=== PATIENT | female | born 1990 | race Caucasian/White ===

== ENCOUNTER → 2022-11-23 | Outpatient (CLI) | payer OTHER | LOC: M RAD 11:37 | PROVIDERS: ATTEND Advanced Practice Midwife | DX: O36.5990 Maternal care for other known or suspected poor fetal growth, unspecified trimester, not applicable or unspecified (principal) ==

== ENCOUNTER 2022-12-03 07:30 | Inpatient (IN) | payer OTHER ==
[~2022-12-03] VITALS: Ht 167.6 cm; Wt 96.7 kg
[2022-12-03] VITALS (19 sets, daily range): BP systolic 99–129; BP diastolic 52–72; O2SAT 97–99
[2022-12-03] MEDS ORDERED: LACTATED RINGER'S 1000 ML IV STA (07:53)
[2022-12-03] MEDS ORDERED: LR 1,000 ML IV SCH (07:55)
[2022-12-03] MEDS ORDERED: OXYTOCIN DRIP 30 UNITS in IV 1 EA IV PRN ×4 (07:55)
[2022-12-03] MEDS ORDERED: CARBOPROST TROMETHAMINE 250 MCG/ML AMP IM PRN (07:55)
[2022-12-03] MEDS ORDERED: METHYLERGONOVINE MALEATE 0.2MG/ML 1ML VIAL IM PRN (07:55)
[2022-12-03] MEDS ORDERED: TRANEXAMIC ACID INJection 1,000 MG in NS 100 ML IV PRN (07:55)
[2022-12-03] MEDS ORDERED: LIDOCAINE 1% MDV 20ML VIAL INFIL PRN (07:55)
[2022-12-03] MEDS ORDERED: PRENTAB9 PO (08:23)
[2022-12-03] MEDS ORDERED: ACET500P3 PO (08:23)
[2022-12-03] MEDS ORDERED: TUMS500C PO (08:23)
[2022-12-03] MEDS ORDERED: HOME MED LIST COMPLETE! XX SCH (08:25)
[2022-12-03 08:36] LABS: HEMATOCRIT 37.3 % (36.0-47.0); HEMOGLOBIN 12.2 g/dl (12.0-15.5); MEAN CORPUSCULAR HGB CONC 32.7 g/dl (32.0-36.5); MEAN CORPUSCULAR VOLUME 91.6 fl (80.0-96.0); PLATELET COUNT, AUTOMATED 239 10^3/uL (150-450); RED BLOOD COUNT 4.07 10^6/uL (4.00-5.40); WHITE BLOOD COUNT 13.4 10^3/uL (4.0-10.0)
[2022-12-03] MEDS: miSOPROStol 50MCG 1/2 TABLET SL SCH ×2 (10:07→17:34)
[2022-12-03] MEDS ORDERED: OXYTOCIN DRIP 30 UNITS in IV 1 EA IV SCH (22:15)
[2022-12-04] VITALS (11 sets, daily range): BP systolic 114–137; BP diastolic 62–73; O2SAT 98
[2022-12-04] MEDS: LR 1,000 ML IV SCH ×3 (02:40→18:40)
[2022-12-04] MEDS ORDERED: DIBUCAINE 1% OINTMENT 30GM TOP PRN (02:40)
[2022-12-04] MEDS ORDERED: ONDANSETRON 4MG 2ML VIAL IV PRN (02:40)
[2022-12-04] MEDS ORDERED: MOM 30ML SUSPENSION UDC PO PRN (02:40)
[2022-12-04] MEDS ORDERED: METHYLERGONOVINE MALEATE 0.2 MG TAB PO PRN (02:40)
[2022-12-04] MEDS ORDERED: OXYTOCIN DRIP 30 UNITS in IV 1 EA IV SCH ×4 (02:40)
[2022-12-04] MEDS ORDERED: DOCUSATE SODIUM 100MG CAPSULE PO PRN (02:40)
[2022-12-04] MEDS ORDERED: RHOGAM 300MCG (1500IU) INJ IM SCH (02:40)
[2022-12-04] MEDS ORDERED: ACETAMINOPHEN TAB 650MG DOSE (2X325MG) PO PRN (02:40)
[2022-12-04] MEDS: IBUPROFEN 800 MG TAB PO PRN ×2 (02:59→11:26)
[2022-12-04] MEDS: ACETAMINOPHEN 500 MG TAB PO PRN ×2 (05:35→18:13)
[2022-12-04] MEDS: PRENATAL VITAMINS CHEWABLE TABLET PO SCH (11:25)
[2022-12-04] MEDS: IBUPROFEN 600MG TAB PO PRN (20:13)
[2022-12-05] MEDS: LR 1,000 ML IV SCH (02:40)
[2022-12-05] MEDS: IBUPROFEN 600MG TAB PO PRN (05:21)
[2022-12-05 06:00] VITALS: BP 124/70; O2SAT 99
[2022-12-05] MEDS: PRENATAL VITAMINS CHEWABLE TABLET PO SCH (08:50)
[2022-12-06] MEDS ORDERED: MEASLES,MUMPS,RUBELLA VACCINE INJ (MMR-II) SC.IMMUN ONE (09:00)
== END 2022-12-05 12:30 | disposition home or self-care (01) | DRG 807 ==
LOC: M LDI 07:30 → M OBS 12-04 04:36
PROVIDERS: ADMIT Advanced Practice Midwife; ATTEND Obstetrics & Gynecology
PROC: 3E0P7GC Introduction of Other Therapeutic Substance into Female Reproductive, Via Natural or Artificial Opening (ICD-10-PCS; 2022-12-03)
PROC: 10E0XZZ Delivery of Products of Conception, External Approach (ICD-10-PCS; principal; 2022-12-04)
DX: O36.5930 Maternal care for other known or suspected poor fetal growth, third trimester, not applicable or unspecified (principal); Z37.0 Single live birth; Z3A.38 38 weeks gestation of pregnancy

== ENCOUNTER 2024-11-24 17:48 | Emergency (ER) | payer OTHER ==
[~2024-11-24] VITALS: Ht 167.6 cm; Wt 86.1 kg
[~2024-11-24 17:48] MED LIST: ACET-683 PO; ACET500P3 PO; IBUP80TA PO; PANT40TA29 PO; PRENTAB9 PO; TUMS500C PO
[2024-11-24 18:53] LABS: BASO # 0.1 10^3/uL (0.0-0.2); BASO % 0.5 % (0.0-1.0); EOS # 0.3 10^3/uL (0.0-0.5); EOS % 2.8 % (0.0-3.0); LYMPH # 3.7 10^3/uL (1.5-5.0); LYMPH % 36.8 % (24.0-44.0); MONO # 0.7 10^3/uL (0.0-0.8); MONO % 6.5 % (2.0-8.0); NEUTROPHILS # 5.4 10^3/uL (1.5-8.5); NEUTROPHILS % 53.2 % (36.0-66.0); PLATELET COUNT, AUTOMATED 464 10^3/uL (150-450)
[2024-11-24 19:19] LABS: INR 1.07
[2024-11-24 19:24] LABS: APPEARANCE, URINE CLEAR (CLEAR); BACTERIA, URINE AUTO NEGATIVE (NEGATIVE); BILIRUBIN, URINE AUTO NEGATIVE (NEGATIVE); BLOOD, URINE BLOOD 2+ (NEGATIVE); GLUCOSE, URINE (UA) AUTO NEGATIVE (NEGATIVE); KETONE, URINE AUTO NEGATIVE (NEGATIVE); LEUKOCYTE ESTERASE, URINE AUTO NEGATIVE (NEGATIVE); MUCUS, URINE SMALL (NEGATIVE); NITRITE, URINE AUTO NEGATIVE (NEGATIVE); PROTEIN, URINE AUTO NEGATIVE (NEGATIVE); RBC, URINE AUTO 0 /HPF (0-3); SPECIFIC GRAVITY URINE AUTO 1.009 (1.002-1.035); SQUAMOUS EPITHELIAL CELL UR AU 1 /HPF (0-6); UROBILINOGEN, URINE AUTO 0.2 mg/dL (0.0-2.0); WBC, URINE AUTO 1 /HPF (0-3)
[2024-11-24 19:34] LABS: ALT/SGPT 107 U/L (7.0-40); AST/SGOT 75 U/L (<34); CALCIUM LEVEL 8.6 MG/DL (8.5-10.1); CARBON DIOXIDE LEVEL 23 MMOL/L (20-31); CHLORIDE LEVEL 109 MMOL/L (98-107); CREATININE FOR GFR 0.80 MG/DL (0.55-1.30); GLOMERULAR FILTRATION RATE > 90.0 (>60); MAGNESIUM LEVEL 1.9 MG/DL (1.8-2.4); POTASSIUM SERUM 5.2 MMOL/L (3.5-5.1); SODIUM LEVEL 143 MMOL/L (136-145)
[2024-11-24 20:11] LABS: TOTAL PROTEIN,RANDOM URINE 9.1 MG/DL (0.0-14.0)
[2024-11-24] MEDS ORDERED: IBUP1TAB7 PO (21:21)
[2024-11-24] MEDS ORDERED: TUMS500C PO (21:21)
[2024-11-24] MEDS ORDERED: SIME80CH6 PO (21:21)
[2024-11-24] MEDS ORDERED: ACET-683 PO (21:21)
[2024-11-24] MEDS ORDERED: MYLA1SUS PO (21:21)
[2024-11-24] MEDS ORDERED: HOME MED LIST COMPLETE! XX SCH (21:25)
[2024-11-24] MEDS: KETOROLAC 30 MG/ML 1 ML VIAL IV ONE (21:54)
[2024-11-24] MEDS: ACETAMINOPHEN *IV* 1,000 MG in IV 1 EA IV ONE (21:54)
[2024-11-24] MEDS: MAG SULF 1GM/100ML (MAG RUN) 1 GM in IV 1 EA IV ONE (22:05)
[2024-11-24 23:08] VITALS: BP 146/73; TEMP 97.5; O2SAT 98
== END 2024-11-24 23:17 | disposition home or self-care (01) ==
LOC: M ED 17:48
DX: R07.9 Chest pain, unspecified (principal); F41.9 Anxiety disorder, unspecified; I10 Essential (primary) hypertension; R74.01 Elevation of levels of liver transaminase levels; R51.9 Headache, unspecified; R00.1 Bradycardia, unspecified; K21.9 Gastro-esophageal reflux disease without esophagitis; Z79.1 Long term (current) use of non-steroidal anti-inflammatories (NSAID); Z79.899 Other long term (current) drug therapy
CPT/HCPCS: 71045; 80048; 80076; 81001; 82570; 83735; 84156; 84484; 84550; 85025; 85384; 85610; 85730; 86850; 86900; 86901; 87486; 87581; 87633; 87798; 93005; 93041; 94760; 96365; 96367; 96375; 99285; J0131; J1885; J3475